=== PATIENT | male | born 1990 | race African-American/Black ===

== ENCOUNTER 2017-09-04 21:47 | Emergency (ER) | payer MEDICAID ==
[~2017-09-04] VITALS: Ht 177.8 cm; Wt 100.0 kg
[2017-09-04] MEDS ORDERED: LEVETIRACETAM 500MG PREMIX 100 ML IV ONE (23:00)
[2017-09-05 00:27] VITALS: BP 122/78
== END 2017-09-05 00:33 | disposition home or self-care (01) ==
LOC: ER 22:02
DX: R56.9 Unspecified convulsions (principal); M25.571 Pain in right ankle and joints of right foot; W07.XXXA Fall from chair, initial encounter; Y93.89 Activity, other specified; Y92.89 Other specified places as the place of occurrence of the external cause; Y99.8 Other external cause status
CPT/HCPCS: 36415; 82542; 82947; 96365; 99284; J1953

== ENCOUNTER 2018-05-17 08:04 | Emergency (ER) | payer MEDICAID ==
[~2018-05-17] VITALS: Ht 180.3 cm; Wt 100.0 kg
[2018-05-17] MEDS ORDERED: KEPPSOL GT (08:11)
[2018-05-17 10:55] LABS: CHLORIDE 100 mEq/L (98-107)
[2018-05-17 10:56] LABS: BASOPHILS % 0.2 % (0.0-2.0); EOSINOPHILS % 0.3 % (0.0-5.0); HEMATOCRIT. 46.1 % (42.0-52.0); HEMOGLOBIN. 15.3 g/dL (14.0-18.0); LYMPHOCYTES % 9.7 % (20.0-50.0); MEAN CORPUSCULAR HEMOGLOBIN 28.7 pg (28.0-32.0); MEAN CORPUSCULAR VOLUME 86.4 fL (80.0-94.0); MEAN PLATELET VOLUME 8.8 fl (7.4-10.4); MONOCYTES % 6.3 % (2.0-8.0); NEUTROPHILS % 83.5 % (40.0-76.0); PLATELET 226 x1000/uL (130-400); RED BLOOD CELL COUNT 5.34 mill/uL (4.7-6.1); RED CELL DISTRIBUTION WIDTH 13.5 % (11.6-14.6)
[2018-05-17 11:01] LABS: CLARITY URINE CLEAR (CLEAR); COLOR URINE YELLOW (YELLOW); KETONES URINE NEGATIVE (NEGATIVE); LEUKOCYTE ESTERASE URINE NEGATIVE (NEGATIVE); NITRITE URINE NEGATIVE (NEGATIVE); OCCULT BLOOD URINE NEGATIVE (NEGATIVE); PROTEIN URINE NEGATIVE (NEGATIVE); SPECIFIC GRAVITY URINE 1.017 (1.005-1.030); UROBILINOGEN URINE 0.2 E.U./dL (0.2-1.0)
[2018-05-17 11:03] LABS: ETHANOL BLOOD < 10 mg/dL
[2018-05-17 11:32] LABS: *AMPHETAMINES SCREEN URINE NEGATIVE (NEGATIVE); *BARBITURATES SCREEN URINE NEGATIVE (NEGATIVE); *BENZODIAZEPINES SCREEN URINE NEGATIVE (NEGATIVE); *COCAINE SCREEN URINE NEGATIVE (NEGATIVE); METHADONE URINE SCREEN NEGATIVE (NEGATIVE); OPIATES URINE SCREEN NEGATIVE (NEGATIVE)
[2018-05-17 11:33] LABS: CANNABINOID URINE SCREEN NEGATIVE (NEGATIVE); PHENCYCLIDINE URINE SCREEN NEGATIVE (NEGATIVE)
[2018-05-17] MEDS ORDERED: LORAZEPAM 2MG/ML CPJ IV ONE (12:15)
[2018-05-17] MEDS ORDERED: LEVE10006 MT (15:08)
[2018-05-17] MEDS ORDERED: PHEN300C6 PO (15:08)
[2018-05-17] MEDS ORDERED: OLAN15TA17 MT (15:08)
[2018-05-17] MEDS ORDERED: FAMOTIDINE 20MG TABLET PO ONE (17:45)
[2018-05-17] MEDS ORDERED: KETOROLAC 30MG/ML VIAL IV ONE (17:45)
[2018-05-17] MEDS ORDERED: ONDANSETRON 4MG ODT PO ONE ×2 (17:45→20:45)
[2018-05-17 21:53] VITALS: BP 152/107
== END 2018-05-17 21:57 | disposition home or self-care (01) ==
LOC: ER 08:04
DX: F20.0 Paranoid schizophrenia (principal); G40.909 Epilepsy, unspecified, not intractable, without status epilepticus
CPT/HCPCS: 36415; 76705; 80053; 80305; 80307; 80329; 81003; 82542; 83690; 85025; 96374; 96375; 99285; G0482; J1885; J2060; Q0162; Z7610

== ENCOUNTER 2018-08-18 09:21 | Inpatient (IN) | payer MEDICAID ==
[~2018-08-18] VITALS: Ht 185.4 cm; Wt 101.7 kg
[~2018-08-18 09:21] MED LIST: KEPPSOL GT; LEVE10006 MT; OLAN15TA17 MT; PHEN300C6 PO
[2018-08-18] MEDS ORDERED: ZONI100C45 MT (10:01)
[2018-08-18] MEDS ORDERED: ONDANSETRON HCL 4MG/2ML INJ IV STA (11:53)
[2018-08-18] MEDS ORDERED: SODIUM CHLORIDE 0.9% 1,000 ML IV ONE (11:53)
[2018-08-18] MEDS ORDERED: LEVETIRACETAM 1000MG/100ML 100 ML IV ONE (12:30)
[2018-08-18 13:25] LABS: CHLORIDE 100 mEq/L (98-107)
[2018-08-18 13:28] LABS: INR 1.2; PROTHROMBIN TIME 11.7 sec (9.1-11.1)
[2018-08-18 13:29] LABS: CLARITY URINE CLEAR (CLEAR); COLOR URINE DARK YELLOW (YELLOW); KETONES URINE 4+ (NEGATIVE); LEUKOCYTE ESTERASE URINE NEGATIVE (NEGATIVE); NITRITE URINE NEGATIVE (NEGATIVE); OCCULT BLOOD URINE NEGATIVE (NEGATIVE); PH URINE 5.5 (4.5-8.0); PROTEIN URINE TRACE (NEGATIVE)
[2018-08-18 13:30] LABS: BASOPHILS % 0.4 % (0.0-2.0); EOSINOPHILS % 1.9 % (0.0-5.0); HEMATOCRIT. 46.8 % (42.0-52.0); HEMOGLOBIN. 15.9 g/dL (14.0-18.0); LYMPHOCYTES % 29.1 % (20.0-50.0); MEAN CORPUSCULAR VOLUME 85.6 fL (80.0-94.0); MEAN PLATELET VOLUME 8.7 fl (7.4-10.4); NEUTROPHILS % 61.6 % (40.0-76.0); PLATELET 262 x1000/uL (130-400); RED BLOOD CELL COUNT 5.46 mill/uL (4.7-6.1); RED CELL DISTRIBUTION WIDTH 13.4 % (11.6-14.6)
[2018-08-18 13:32] LABS: ETHANOL BLOOD < 10 mg/dL
[2018-08-18 14:19] LABS: METHADONE URINE SCREEN NEGATIVE (NEGATIVE); OPIATES URINE SCREEN NEGATIVE (NEGATIVE); PHENCYCLIDINE URINE SCREEN NEGATIVE (NEGATIVE)
[2018-08-18 14:20] LABS: *AMPHETAMINES SCREEN URINE NEGATIVE (NEGATIVE); *BARBITURATES SCREEN URINE NEGATIVE (NEGATIVE); *BENZODIAZEPINES SCREEN URINE NEGATIVE (NEGATIVE); *COCAINE SCREEN URINE NEGATIVE (NEGATIVE); CANNABINOID URINE SCREEN NEGATIVE (NEGATIVE)
[2018-08-18] MEDS ORDERED: ACETAMINOPHEN 325MG TABLET PO PRN (15:45)
[2018-08-18] MEDS ORDERED: CLONIDINE 0.1MG TABLET PO PRN (15:45)
[2018-08-18] MEDS ORDERED: ONDANSETRON HCL 4MG/2ML INJ IV PRN (15:45)
[2018-08-18] MEDS ORDERED: LEVETIRACETAM 500MG PREMIX 100 ML IV SCH (17:00)
[2018-08-18] MEDS ORDERED: POTASSIUM CHLORIDE 20MEQ TABLET SR PO PRN (21:19)
[2018-08-18 21:52] VITALS: BP 132/87
[2018-08-18] MEDS: LEVETIRACETAM 500MG in SODIUM CHLORIDE 0.9% 100ML IV SCH (23:23)
[2018-08-18] MEDS: SODIUM CHLORIDE 0.9% 1,000 ML IV SCH (23:24)
[2018-08-19] VITALS: BP 116/87
[2018-08-19 02:00] VITALS: BP 121/82
[2018-08-19 04:00] VITALS: BP 108/74
[2018-08-19 06:00] VITALS: BP 108/74
[2018-08-19 06:55] LABS: CHLORIDE 104 mEq/L (98-107)
[2018-08-19] MEDS: LEVETIRACETAM 500MG in SODIUM CHLORIDE 0.9% 100ML IV SCH (09:20)
[2018-08-19] MEDS: SODIUM CHLORIDE 0.9% 1,000 ML IV SCH (09:21)
[2018-08-19 10:35] VITALS: BP 121/76
[2018-08-19 11:13] LABS: BASOPHILS % 0.5 % (0.0-2.0); EOSINOPHILS % 4.6 % (0.0-5.0); HEMATOCRIT. 41.2 % (42.0-52.0); LYMPHOCYTES % 40.3 % (20.0-50.0); MEAN CORPUSCULAR VOLUME 85.3 fL (80.0-94.0); MEAN PLATELET VOLUME 8.6 fl (7.4-10.4); NEUTROPHILS % 45.6 % (40.0-76.0); PLATELET 219 x1000/uL (130-400); RED BLOOD CELL COUNT 4.83 mill/uL (4.7-6.1); RED CELL DISTRIBUTION WIDTH 13.4 % (11.6-14.6)
[2018-08-19 12:00] VITALS: BP 119/83
== END 2018-08-19 14:35 | disposition home or self-care (01) | DRG 812 ==
LOC: ER 10:12 → 6WST 14:22 → EDBEDREQ 14:24 → ENRESERV 19:56
PROVIDERS: ADMIT Specialist; ATTEND Specialist
DX: T42.0X1A Poisoning by hydantoin derivatives, accidental (unintentional), initial encounter (principal); E86.0 Dehydration; F32.9 Major depressive disorder, single episode, unspecified; Y92.89 Other specified places as the place of occurrence of the external cause; Z79.899 Other long term (current) drug therapy
CPT/HCPCS: 36415; 74022; 80048; 80185; 80305; 83735; 96361; 96365; 96375; 99291; G0482; J1953; J2405; J7030; J7050

== ENCOUNTER 2019-12-07 14:16 | Emergency (ER) | payer MEDICAID ==
[~2019-12-07] VITALS: Ht 182.9 cm; Wt 111.4 kg
[~2019-12-07 14:16] MED LIST changes: -KEPPSOL GT; -PHEN300C6 PO
[2019-12-07] MEDS ORDERED: ACETAMINOPHEN 325MG TABLET PO ONE (15:30)
[2019-12-07 18:45] VITALS: BP 131/74
== END 2019-12-07 18:53 | disposition home or self-care (01) ==
LOC: ER 14:16
DX: J06.9 Acute upper respiratory infection, unspecified (principal); G40.909 Epilepsy, unspecified, not intractable, without status epilepticus; F99 Mental disorder, not otherwise specified
CPT/HCPCS: 71045; 87804; 99284

== ENCOUNTER 2023-01-19 14:08 | Emergency (ER) | payer MEDICARE, MEDICAID ==
[~2023-01-19] VITALS: Ht 182.9 cm; Wt 107.0 kg
[~2023-01-19 14:08] MED LIST changes: +IBUP-2028 MT; -OLAN15TA17 MT; +OLAN15TA35 MT
[2023-01-19] MEDS ORDERED: HYDROCODONE/ACETAMINOPHEN 5/325MG TABLET PO ONE (17:00)
[2023-01-19 17:40] VITALS: BP 145/77
[2023-01-19] MEDS ORDERED: IBUP-2028 PO (18:30)
== END 2023-01-19 19:13 | disposition home or self-care (01) ==
LOC: ER 14:18
DX: S00.83XA Contusion of other part of head, initial encounter (principal); Y08.89XA Assault by other specified means, initial encounter; Y93.89 Activity, other specified; Y92.89 Other specified places as the place of occurrence of the external cause; Y99.8 Other external cause status
CPT/HCPCS: 70486; 99284